=== PATIENT | male | born 1955 | race Caucasian/White ===

== ENCOUNTER 2020-08-20 09:00 | Outpatient (REF) | payer OTHER, SELFPAY ==
[2020-08-20 09:18] LABS: COVID-19 Test Negative (Negative)
== END 2020-08-20 09:01 | disposition home or self-care (01) ==
LOC: HO.EMPCOV 09:00
PROVIDERS: Visit Provider Internal Medicine
DX: Z20.822 Contact with and (suspected) exposure to COVID-19 (principal)
CPT/HCPCS: 36415; 87635; C9803

== ENCOUNTER 2020-08-20 09:32 | Emergency (ER) | payer OTHER, SELFPAY ==
[2020-08-20 09:37] VITALS: BP 109/71; PULSE 62; RESP 20; TEMP 36.4; O2SAT 98; BMI 25.0
--- NOTE | 2020-08-20 09:54 | ED.NAVMDI ---
HPI - Nausea/Vomiting/Diarrhea General Chief complaint: Nausea/Vomiting/Diarrhea Stated complaint: n/d/chills Time Seen by Provider: 08/20/20 09:42 Source: patient Mode of arrival: ambulatory Limitations: no limitations History of Present Illness HPI Narrative: 65 y/o male wtih no medical problems presenting to the ER with acute onset of chills, nausea and diarrhea x 1 that started this morning. Patient was in his usual state of health yesterday, climbed [place] without any difficulty. Last night he woke up at 1am with cold sweats and was unable to go back to sleep. At work this morning nausea and diarrhea began. He states stool was loose, brown, non-bloody. No vomiting or abdominal pain. No fevers, SOB, chest pain, muscle aches. MD elicited complaint: nausea and diarrhea Onset (ago): hour(s) (4) Description of diarrhea: semi-solid and loose Associated nausea: Yes Associated abdominal pain: No Location of pain: none Severity: moderate Exacerbating factors: none Context: other (works in ICU ) Associated symptoms: fever/chills, loss of appetite, malaise and nausea/vomiting Related Data Allergies Allergy/AdvReac Type Severity Reaction Status Date / Time prochlorperazine Allergy Unknown AKATHESIA Unverified 04/26/20 19:38 [From COMPAZINE] Review of Systems Review of Systems: Constitutional: No Fever, + Chills ENT/Mouth: No sore throat, No Rhinorrhea, No Swallowing Difficulty Cardiovascular: No Chest Pain, No SOB, No Orthopnea, No Edema Respiratory: No Cough, No Sputum, No Wheezing, No dyspnea Gastrointestinal: + Nausea, No Vomiting, + Diarrhea, No abdominal Pain, No Hematochezia, No Melena Genitourinary: No Dysuria, No Urinary Frequency, No Hematuria Musculoskeletal: No joint pain, No Myalgias Skin: No Skin Lesions, No rash Neuro: No Weakness, No Numbness, No Dizziness, + Headache Heme/Lymph: No Lymphadenopathy Endocrine: No Polyuria, No Polydipsia Gastrointestinal: Gastrointestinal: Reports nausea PMFSH Past Medical History Attestation statement: The following information was validated with the patient. Social History Social History Alcohol intake: never Smoking Status: Never smoker Use of substances other than those prescribed or required for medical reasons: No Advance Directives: No Advance Directives Information Provided: Yes Physical Exam Vital Signs: Vital Signs: Last Vital Signs Temp 98.1 F 08/20/20 10:58 Pulse 66 08/20/20 10:58 Resp 18 08/20/20 10:58 BP 117/76 08/20/20 10:58 Pulse Ox 95 08/20/20 10:58 Body Mass Index 25.0 Appearance: Alert. Oriented X3. No acute distress. Eyes: normal inspection ENT: Pharynx normal. Neck: Normal inspection. Neck supple. CVS: Normal heart rate and rhythm. Pulses normal. Respiratory: No respiratory distress. Breath sounds normal. Abdomen: Soft and nontender. +BS x4 Skin: Skin warm and dry. Normal skin color. Normal skin turgor. No rashes. Extremities: No lower extremity edema. Negative Sam's sign Neuro: Oriented X 3. No motor deficit. No sensory deficit. Course Course Course Narrative: 65 y/o healthy male presenting with chills, nausea and diarrhea. Concern for COVID-19 given line of work. Admits to decreased PO intake and not drinking enough water - will check basic labs, electrolytes, inflammatory markers, LFT's, etc. LR ordered. COVID rapid was negative, will also send PCR. Hemodynamically stable and appears well. Reevaluation(s) Reevaluation #1: Lab workup is unremarkable. COVID negative x2. s/p 2L IVF and feeling better. Stable for discharge. MDM - Nausea/Vomiting/Diarrhea Lab Data Result diagrams: 08/20/20 09:54 08/20/20 09:54 Labs: Lab Results 08/20/20 08/20/20 08/20/20 Range/Units 09:54 09:54 09:54 WBC 8.5 (4.8-10.8) X10*3/uL RBC 5.08 (4.60-5.80) X10*6/uL Hgb 14.7 (14.0-18.0) g/dl Hct 44.6 (42-52) % MCV 87.8 (80-98) fL MCH 28.9 (27.0-33.0) pg MCHC 33.0 (31.0-36.0) g/dl RDW 12.5 (11.0-16.0) % Plt Count 261 (160-400) X10*3/uL MPV 9.6 (9.4-12.4) fL Immature Gran % (Auto) 0.5 H (0.0-0.4) % Neut % (Auto) 80.3 H (45-73) % Lymph % (Auto) 12.1 L (20-40) % [place] % (Auto) 6.1 (2-11) % Eos % (Auto) 0.8 (0-4) % Baso % (Auto) 0.2 (0-2) % Lymph # (Auto) 1.0 L (1.2-4.9) X10*3/uL [place] # (Auto) 0.5 (0.1-1.2) X10*3/uL Eos # (Auto) 0.1 (0.0-0.4) X10*3/uL Baso # (Auto) 0.0 (0.0-0.2) X10*3/uL Abs Immat Gran (auto) 0.04 H (0.00-0.03) X10*3/uL Absolute Neuts (auto) 6.8 (2.0-8.3) X10*3/uL Absolute Nucleated RBC 0.000 (0.0-0.012) X10*3/uL Nucleated RBC % (auto) 0.0 (0.0-0.2) /100WBC Sodium 138 (135-145) mmol/L Potassium 4.8 (3.3-5.1) mmol/l Chloride 108 (96-108) mmol/L Carbon Dioxide 19 L (22-29) mmol/L Anion Gap 16 (12-20) BUN 21 H (9-16) mg/dL Creatinine 0.76 (0.5-1.4) mg/dL Estim Creat Clear Calc 112.4 Estimated GFR > 60 Random Glucose 87 (60-115) mg/dL Calcium 9.3 (8.4-10.2) mg/dL Magnesium 1.9 (1.6-2.6) mg/dL Ferritin 87 (20-250) ng/mL Total Bilirubin 0.8 (0.0-1.0) mg/dL Direct Bilirubin 0.2 (0.0-0.5) mg/dL AST 27 (5-37) U/L ALT 29 (0-40) U/L Alkaline Phosphatase 94 (39-117) U/L Lactate Dehydrogenase 262 (118-273) U/L C-Reactive Protein 0.07 (< or = 0.50) mg/dL Total Protein 7.5 (6.5-8.0) g/dL Albumin 4.5 (3.5-5.0) g/dL Coronavirus (PCR) (Negative) Influenza Type A (PCR) (Negative) Influenza Type B (PCR) (Negative) RSV RNA Qual (PCR) (Negative) 08/20/20 Range/Units 09:54 WBC (4.8-10.8) X10*3/uL RBC (4.60-5.80) X10*6/uL Hgb (14.0-18.0) g/dl Hct (42-52) % MCV (80-98) fL MCH (27.0-33.0) pg MCHC (31.0-36.0) g/dl RDW (11.0-16.0) % Plt Count (160-400) X10*3/uL MPV (9.4-12.4) fL Immature Gran % (Auto) (0.0-0.4) % Neut % (Auto) (45-73) % Lymph % (Auto) (20-40) % [place] % (Auto) (2-11) % Eos % (Auto) (0-4) % Baso % (Auto) (0-2) % Lymph # (Auto) (1.2-4.9) X10*3/uL [place] # (Auto) (0.1-1.2) X10*3/uL Eos # (Auto) (0.0-0.4) X10*3/uL Baso # (Auto) (0.0-0.2) X10*3/uL Abs Immat Gran (auto) (0.00-0.03) X10*3/uL Absolute Neuts (auto) (2.0-8.3) X10*3/uL Absolute Nucleated RBC (0.0-0.012) X10*3/uL Nucleated RBC % (auto) (0.0-0.2) /100WBC Sodium (135-145) mmol/L Potassium (3.3-5.1) mmol/l Chloride (96-108) mmol/L Carbon Dioxide (22-29) mmol/L Anion Gap (12-20) BUN (9-16) mg/dL Creatinine (0.5-1.4) mg/dL Estim Creat Clear Calc Estimated GFR Random Glucose (60-115) mg/dL Calcium (8.4-10.2) mg/dL Magnesium (1.6-2.6) mg/dL Ferritin (20-250) ng/mL Total Bilirubin (0.0-1.0) mg/dL Direct Bilirubin (0.0-0.5) mg/dL AST (5-37) U/L ALT (0-40) U/L Alkaline Phosphatase (39-117) U/L Lactate Dehydrogenase (118-273) U/L C-Reactive Protein (< or = 0.50) mg/dL Total Protein (6.5-8.0) g/dL Albumin (3.5-5.0) g/dL Coronavirus (PCR) NEGATIVE (Negative) Influenza Type A (PCR) NEGATIVE (Negative) Influenza Type B (PCR) NEGATIVE (Negative) RSV RNA Qual (PCR) NEGATIVE (Negative) Critical Care Time Critical Care Time Critical Care Time: No Discharge Plan Discharge Clinical Impression: Gastroenteritis Patient Disposition: Home, Self-Care Instructions: Dehydration (ED), Gastroenteritis (ED) Additional Instructions: Your lab workup today was unremarkable. You were tested for COVID-19 x2 - both results were negative. Rest and STAY HYDRATED. Drink plenty of water. Follow up with your doctor as needed.
[2020-08-20] MEDS: Lactated Ringers 1,000 ML 999 ML IVCONT ×2 (10:02→10:55)
[2020-08-20 10:03] LABS: MANUAL DIFF FLAG NO
[2020-08-20 10:14] LABS: Basophils Percent Auto 0.2 % (0-2); Eosinophils Absolute Auto 0.1 X10*3/uL (0.0-0.4); Eosinophils Percent Auto 0.8 % (0-4); Hematocrit 44.6 % (42-52); Hemoglobin 14.7 g/dl (14.0-18.0); Imm Gran Abs Auto 0.04 X10*3/uL (0.00-0.03); Imm Gran Pct Auto 0.5 % (0.0-0.4); Lymphocytes Percent Auto 12.1 % (20-40); Mean Corpuscular Hemoglobin 28.9 pg (27.0-33.0); Mean Corpuscular Volume 87.8 fL (80-98); Mean Platelet Volume 9.6 fL (9.4-12.4); Monocytes Absolute Auto 0.5 X10*3/uL (0.1-1.2); Monocytes Percent Auto 6.1 % (2-11); Neutrophils Absolute Auto 6.8 X10*3/uL (2.0-8.3); Neutrophils Percent Auto 80.3 % (45-73); Platelet Count 261 X10*3/uL (160-400); Red Blood Count 5.08 X10*6/uL (4.60-5.80); Red Cell Distribution Width 12.5 % (11.0-16.0); White Blood Count 8.5 X10*3/uL (4.8-10.8)
[2020-08-20 10:36] LABS: Alanine Aminotransferase 29 U/L (0-40); Albumin Level 4.5 g/dL (3.5-5.0); Alkaline Phosphatase 94 U/L (39-117); Anion Gap 16 (12-20); Aspartate Amino Transferase 27 U/L (5-37); Bilirubin Direct 0.2 mg/dL (0.0-0.5); Bilirubin Total 0.8 mg/dL (0.0-1.0); Blood Urea Nitrogen 21 mg/dL (9-16); C Reactive Protein 0.07 mg/dL (< or = 0.50); Calcium 9.3 mg/dL (8.4-10.2); Carbon Dioxide 19 mmol/L (22-29); Chloride 108 mmol/L (96-108); Creatinine Clr Calc Pharmacy 112.4; Estimated Glomerular Filt Rate > 60; Glucose Random 87 mg/dL (60-115); Lactate Dehydrogenase 262 U/L (118-273); Magnesium 1.9 mg/dL (1.6-2.6); Potassium 4.8 mmol/l (3.3-5.1); Sodium 138 mmol/L (135-145); Total Protein 7.5 g/dL (6.5-8.0)
[2020-08-20 10:46] LABS: Ferritin 87 ng/mL (20-250)
[2020-08-20 10:58] VITALS: BP 117/76; PULSE 66; RESP 18; TEMP 36.7; O2SAT 95
[2020-08-20 11:40] LABS: Influenza A PCR NEGATIVE (Negative); Influenza B PCR NEGATIVE (Negative); Resp Syncy Virus RNA Qual PCR NEGATIVE (Negative); SARS COV2 PCR INHOUSE NEGATIVE (Negative)
== END 2020-08-20 12:09 | disposition home or self-care (01) ==
PROVIDERS: Physician Assistant; Emergency Provider Emergency Medicine; PCP Internal Medicine
DX: K52.9 Noninfective gastroenteritis and colitis, unspecified (principal); E86.0 Dehydration; Z20.828 Contact with and (suspected) exposure to other viral communicable diseases
CPT/HCPCS: 0241U; 36415; 80048; 80076; 82728; 83615; 83735; 85025; 86140; 96360; 96361; 99284

== ENCOUNTER 2020-10-24 07:57 | Outpatient (REF) | payer OTHER, SELFPAY ==
[2020-10-24 08:13] LABS: COVID-19 Test Negative (Negative)
== END 2020-10-24 07:58 | disposition home or self-care (01) ==
LOC: HO.EMPCOV 07:57
PROVIDERS: Visit Provider Internal Medicine
DX: Z20.822 Contact with and (suspected) exposure to COVID-19 (principal)
CPT/HCPCS: 36415; 87635; C9803

== ENCOUNTER 2021-02-21 08:51 | Outpatient (REF) | payer OTHER, SELFPAY ==
--- NOTE | ~2021-02-21 | MR_ITS ---
EXAMINATION: MR KNEE WITHOUT CONTRAST, LEFT CLINICAL INFORMATION: Patient reports knee pain. COMPARISON: None TECHNIQUE: MRI of the knee without contrast was performed using routine sequences on a high-field scanner. FINDINGS: MENISCI: Medial Meniscus: There is a small focus of increased signal near the free edge at the junction of the body and posterior horn possibly extending to the tibial articular surface or free edge. Findings suspicious but not definitive for meniscal tear. Lateral Meniscus: Intact LIGAMENTS: Cruciate: Intact Collateral: Intact EXTENSOR MECHANISM: Intact ARTICULAR CARTILAGE/BONE: Patellofemoral Compartment: Small focal area of cartilage irregularity along the medial facet of the patella. Trochlear cartilage normal. Overall minimal patellofemoral arthrosis. Medial Compartment: There is subchondral bone marrow edema along the peripheral posterior medial aspect of the tibial plateau compatible with bone contusion. Lateral Compartment: Normal JOINT FLUID AND BURSAE: There is a mild joint effusion and synovitis. MR/MR knee LT wo con IMPRESSION: Possible tear of the medial meniscus. Bone contusion in the medial plateau, mild joint effusion and synovitis. Minimal patellofemoral arthrosis.
== END 2021-02-21 08:52 | disposition home or self-care (01) ==
LOC: HO.MRI 08:51
PROVIDERS: PCP Internal Medicine; Visit Provider Internal Medicine
DX: M25.562 Pain in left knee (principal)
CPT/HCPCS: 73721

== ENCOUNTER → 2021-03-22 10:20 | Outpatient (BNVA) | payer OTHER, SELFPAY | PROVIDERS: PCP Internal Medicine; Visit Provider Surgery ==

== ENCOUNTER 2021-04-15 11:12 | Outpatient (REF) | payer OTHER, SELFPAY ==
[2021-04-15 11:48] LABS: COVID-19 Test Negative (Negative)
== END 2021-04-15 11:13 | disposition home or self-care (01) ==
LOC: HO.LAB 11:12
PROVIDERS: PCP Internal Medicine; Visit Provider Internal Medicine Pulmonary Disease
DX: Z20.822 Contact with and (suspected) exposure to COVID-19 (principal)
CPT/HCPCS: 36415; 87635

== ENCOUNTER 2021-04-17 06:11 | Day surgery (SDC) | payer OTHER, SELFPAY ==
[2021-04-10 09:16] VITALS: BMI 25.0
[2021-04-12 17:50] LABS: MANUAL DIFF FLAG NO
[2021-04-12 17:58] LABS: Basophils Percent Auto 0.4 % (0-2); Eosinophils Absolute Auto 0.1 X10*3/uL (0.0-0.4); Eosinophils Percent Auto 1.5 % (0-4); Hematocrit 41.8 % (42-52); Hemoglobin 13.8 g/dl (14.0-18.0); Imm Gran Abs Auto 0.02 X10*3/uL (0.00-0.03); Imm Gran Pct Auto 0.3 % (0.0-0.4); Lymphocytes Absolute Auto 1.8 X10*3/uL (1.2-4.9); Lymphocytes Percent Auto 26.5 % (20-40); Mean Corpuscular Hemoglobin 29.1 pg (27.0-33.0); Mean Platelet Volume 10.3 fL (9.4-12.4); Monocytes Absolute Auto 0.5 X10*3/uL (0.1-1.2); Monocytes Percent Auto 7.4 % (2-11); Neutrophils Absolute Auto 4.4 X10*3/uL (2.0-8.3); Neutrophils Percent Auto 63.9 % (45-73); Platelet Count 280 X10*3/uL (160-400); Red Blood Count 4.75 X10*6/uL (4.60-5.80); Red Cell Distribution Width 12.8 % (11.0-16.0); White Blood Count 6.9 X10*3/uL (4.8-10.8)
[2021-04-12 18:03] LABS: INTERNATIONAL NORM RATIO 1.1 (0.9-1.1); Prothrombin Time 12.2 SEC (9.9-13.0)
[2021-04-12 18:06] LABS: Partial Thromboplastin Time 36.6 SEC (24.1-38.0)
[2021-04-12 18:13] LABS: Anion Gap 12 (12-20); Blood Urea Nitrogen 26 mg/dL (9-16); Calcium 9.5 mg/dL (8.4-10.2); Carbon Dioxide 23 mmol/L (22-29); Chloride 107 mmol/L (96-108); Creatinine Clr Calc Pharmacy 104.1; Estimated Glomerular Filt Rate > 60; Glucose Random 105 mg/dL (60-115); Potassium 4.5 mmol/L (3.3-5.1); Sodium 137 mmol/L (135-145)
[2021-04-12 18:28] LABS: Color Urine YELLOW; Glucose Urine UA NEG (NEG); Leukocyte Esterase Urine NEG (NEG); Nitrite Urine NEG (NEG); Specific Gravity - Urine >= 1.030 (1.005-1.025); Urine Blood NEG (NEG); Urine Ketones NEG (NEG); Urine Protein NEG (NEG-TRACE)
[2021-04-12 18:29] LABS: Appearance Urine CLEAR
[2021-04-12 18:35] LABS: Prostate Specific Antigen 0.32 ng/mL (<0.05-4.0)
--- NOTE | 2021-04-16 09:30 | P.CONAN_ITS ---
Documented by User: Graciela Casillas NP 04/16/21 09:31 HPI - Anesthesia Eval Consult details Narrative: 66yo M for Left Hernia Repair Inguinal Laparoscopic with Mesh, Hernia Repair Umbilical Laparoscopic,possible open,possible mesh PMFSH Active Problems Active Problems: All Active Problems (Updated 04/10/21 @ 10:41 by Michael Hancock MD) Encounter for preprocedure screening laboratory testing for COVID-19 (Acute) Preoperative examination (Acute) Left inguinal hernia (Acute) Umbilical hernia (Acute) Past Medical History Medical History (Updated 04/10/21 @ 10:41 by Michael Hancock MD) COVID-19 vaccine series completed Seasonal allergies Family History Family History Mother No problems noted. Father No problems noted. Brother No problems noted. Sister No problems noted. Sister No problems noted. Surgical History Surgical History (Updated 04/10/21 @ 09:21 by Mckenzie Gray RN) History of bilateral inguinal hernia repair Hx of knee surgery Hx of ligation of vein Hx of shoulder surgery Social History Social History Alcohol intake: never Patient Tobacco Use Status: Never used Tobacco Use of substances other than those prescribed or required for medical reasons: No Have you been hit, kicked, punched, or otherwise hurt by someone within the past year? If so, by whom?: No Are you DNR?: No Advance Directives Information Provided: Yes Advance Directives on File: No Recently lost weight without trying: No Eating poorly because of decreased appetite: No Nutrition Risks: No Nutritional Risk Poor oral hygiene: No Meds Allergies Allergy/AdvReac Type Severity Reaction Status Date / Time prochlorperazine Allergy Intermediate akathisia Verified 04/17/21 06:47 [From COMPAZINE] Home Medications Medication Instructions Recorded Confirmed Last Taken Type gabapentin 600 mg tablet 600 mg PO DAILY 04/17/21 04/17/21 04/17/21 History Exam Exam Date and Time: April 16, 202130 Height,Weight and Vital Signs: Height 6 ft 1 in Weight 86.183 kg Pertinent Lab Results Pertinent Lab Results: Laboratory Tests 04/12/21 04/12/21 04/12/21 00:00 16:50 16:50 WBC 6.9 RBC 4.75 Hgb 13.8 L Hct 41.8 L MCV 88.0 MCH 29.1 MCHC 33.0 RDW 12.8 Plt Count 280 MPV 10.3 Immature Gran % (Auto) 0.3 Neut % (Auto) 63.9 Lymph % (Auto) 26.5 [place] % (Auto) 7.4 Eos % (Auto) 1.5 Baso % (Auto) 0.4 Lymph # (Auto) 1.8 [place] # (Auto) 0.5 Eos # (Auto) 0.1 Baso # (Auto) 0.0 Abs Immat Gran (auto) 0.02 Absolute Neuts (auto) 4.4 Absolute Nucleated RBC 0.000 Nucleated RBC % (auto) 0.0 PT 12.2 INR 1.1 APTT 36.6 Sodium Potassium Chloride Carbon Dioxide Anion Gap BUN Creatinine Estim Creat Clear Calc Estimated GFR Random Glucose Calcium Prostate Specific Ag Urine Color YELLOW Urine Appearance CLEAR Urine pH 6.0 Ur Specific [place] >= 1.030 H Urine Protein NEG Urine Glucose (UA) NEG Urine Ketones NEG Urine Blood NEG Urine Nitrite NEG Ur Leukocyte Esterase NEG Blood Type Antibody Screen 04/12/21 04/12/21 04/12/21 16:50 16:50 16:50 WBC RBC Hgb Hct MCV MCH MCHC RDW Plt Count MPV Immature Gran % (Auto) Neut % (Auto) Lymph % (Auto) [place] % (Auto) Eos % (Auto) Baso % (Auto) Lymph # (Auto) [place] # (Auto) Eos # (Auto) Baso # (Auto) Abs Immat Gran (auto) Absolute Neuts (auto) Absolute Nucleated RBC Nucleated RBC % (auto) PT INR APTT Sodium 137 Potassium 4.5 Chloride 107 Carbon Dioxide 23 Anion Gap 12 BUN 26 H Creatinine 0.81 Estim Creat Clear Calc 104.1 Estimated GFR > 60 Random Glucose 105 Calcium 9.5 Prostate Specific Ag 0.32 Urine Color Urine Appearance Urine pH Ur Specific [place] Urine Protein Urine Glucose (UA) Urine Ketones Urine Blood Urine Nitrite Ur Leukocyte Esterase Blood Type O Positive Antibody Screen NEGATIVE Assessment and Plan Assessment Anesthesia Assessment: Chart Reviewed Documented by User: Lul Graham MD 04/17/21 06:55 [facility] Past Medical History Medical History (Updated 04/10/21 @ 10:41 by Michael Hancock MD) COVID-19 vaccine series completed Seasonal allergies Family History Family History Mother No problems noted. Father No problems noted. Brother No problems noted. Sister No problems noted. Sister No problems noted. Family history of problems with anesthesia: No Surgical History Surgical History (Updated 04/10/21 @ 09:21 by Mckenzie Gray RN) History of bilateral inguinal hernia repair Hx of knee surgery Hx of ligation of vein Hx of shoulder surgery History of Problems with Anesthesia: No Social History Social History Alcohol intake: never Patient Tobacco Use Status: Never used Tobacco Use of substances other than those prescribed or required for medical reasons: No Have you been hit, kicked, punched, or otherwise hurt by someone within the past year? If so, by whom?: No Are you DNR?: No Advance Directives Information Provided: Yes Advance Directives on File: No Recently lost weight without trying: No Eating poorly because of decreased appetite: No Nutrition Risks: No Nutritional Risk Poor oral hygiene: No Meds Allergies Allergy/AdvReac Type Severity Reaction Status Date / Time prochlorperazine Allergy Intermediate akathisia Verified 04/17/21 06:47 [From COMPAZINE] Home Medications Medication Instructions Recorded Confirmed Last Taken Type gabapentin 600 mg tablet 600 mg PO DAILY 04/17/21 04/17/21 04/17/21 History Exam Airway Mallampati Class: II TM Dist: >3cm Neck ROM: Full Loose/Missing/Broken Teeth: No (many caps and implants diffuse but none loose) Heart: [id number] Lungs: CTA b/l Assessment and Plan Assessment Anesthesia Assessment: Anesthesia Plan Discussed and PAT Visit Final Anesthetic Review Family History of Problems with Anesthesia: No History of Problems with Anesthesia: No NPO: Yes ASA Class: II Final Preanesthetic Review: No Changes in Pt Med Stat, Meds/Allgs Chart Reviewed, Consent Obtained/Reviewed and Anes Risks/Benef Reviewed Patient Risk: Intermediate Procedure Risk: Intermediate Assessment/Block/Sedation in SS: Assess/Block/Sedation-SS Anesthetic Plan Anesthetic Plan: GA and Agree w/ Assess. and Plan Disposition: Standard PACU
--- NOTE | 2021-04-16 15:30 | MHC.SHP ---
Pre-Procedural Eval Section A Date of Service: 04/16/21 Section B Chief Complaint: Inguinal and Umbilical Hernia w/o Gangrene Allergies: Allergies Allergy/AdvReac Type Severity Reaction Status Date / Time prochlorperazine Allergy Intermediate akathisia Unverified 04/10/21 09:23 [From COMPAZINE] Plan I have reviewed the history and physical and performed a pertinent physical examination on my patient. No changes have occurred unless specified.
[2021-04-17] VITALS (18 sets, daily range): BP systolic 99–140; BP diastolic 57–74; PULSE 57–74; RESP 12–19; TEMP 36.3–36.9; O2SAT 90–97
[2021-04-17] MEDS: Lactated Ringers 1,000 ML 100 ML IVCONT (06:48)
--- NOTE | 2021-04-17 07:03 | PC.NURSE ---
PATIENT HAD A COVID SWAB ON THURSDAY FROM A PREVIOUS SURGERY IT WAS NEGATIVE. OK NOT TO SWAB TODAY. MD CRAWFORD AWARE.
--- NOTE | 2021-04-17 09:31 | P.BOP_ITS ---
Brief Operative Note Date of Service: 04/17/21 Pre-op diagnosis: Left inguinal hernia and umbilical hernia Post-op diagnosis: same Procedure: Laparoscopic total extraperitoneal repair of left inguinal hernia with mesh and primary suture repair of umbilical hernia Implants: 3D max Bard Light extra-large left sided mesh Surgeon: Georgina Mohr MD Anesthesia: GETA Was an Uphol[employer]s [employer] used for this Procedure?: No Estimated blood loss (mL): 2 Pathology: other (Umbilical hernia sac) Condition: stable Disposition: PACU
--- NOTE | 2021-04-17 09:32 | W.PM.OPN ---
Operative Note Operative Note Date of Service: 04/17/21 Narrative: Patient was brought into the operating room placed on operating room table in supine position. General anesthesia was induced. The patient received 2 g of IV Kefzol preoperatively and normal DVT prophylaxis was instituted. The abdomen and left groin were shaved with electric clippers and then prepped and draped in normal sterile fashion. The right arm had been tucked next to the patient on the bed. A safety time-out was performed. Next a mixture of local which was 1% lidocaine with epinephrine and 0.25% Marcaine plain was used to anesthetize the infraumbilical skin and subcutaneous tissues. A 2 cm infraumbilical transverse surgical incision was made through which the subcutaneous tissues were dissected down to the level of the fascia. The fascia was opened longitudinally to the left of midline after being anesthetized using the same local medication. The left rectus muscle was elevated and the preperitoneal space was accessed using a finger and bluntly dissected. The laparoscopic dissecting balloon was placed into the preperitoneal space and used to dissect the space under direct vision using a 10 mm 30 degree laparoscoped. Next the laparoscopic preperitoneal balloon was placed into the preperitoneal space posterior to the left rectus muscle. The balloon was insufflated on the 12 mm port and the preperitoneal space was insufflated to 15 mm of mercury. Next we placed the 10 mm 30 degree laparoscoped into the preperitoneal space and visualized the preperitoneal space which was dissected nicely. We then placed 2 additional 5 mm ports in the midline 1 in the suprapubic region and 1 just inferior to the placement of the 12 mm port. We then used to dissect there was to dissect the peritoneum down away from the abdominal wall laterally and away from the spermatic cord and cord structures. We also cleared the Reynold's ligament medially. We visualized the peritoneum riding up on to the spermatic cord and cord structures and reduced the cord and cord structures and a lipoma of the cord so that the hernia was completely reduced. We then shows a extra large Bard Light mesh and rolled up onto a grasper and placed into the 12 mm port into the preperitoneal space. We positioned the mesh so that the medial portion was lying over the midline and over Reynold's ligament and the lateral edge was tucked anterior to the reduced peritoneum. We then held back the peritoneum and completely straighteed out the mesh so that it was lying flat against the abdominal wall and the spermatic cord and cord structures. We then placed a total of 4 tacks using the Capsure Bard Tacker. These tacks were placed 2 at Reynold's ligament and 2 out laterally and superiorly on the abdominal wall. The mesh was in good position and then we desufflated the preperitoneal space watching the peritoneum rise anterior to the newly placed mesh. We then removed the 5 mm ports under direct vision. We desufflated the balloon on the 12 mm port and removed the balloon from the preperitoneal space. We then used more local anesthetic around the umbilicus and turned our attention to repairing the umbilical hernia. We dissected the umbilical skin off for the underlying umbilical hernia sac. We cleared the fascia circumferentially around the hernia sac for at least 2-3 cm. We then amputated the hernia sac which was filled with preperitoneal fat. We passed this off the field for pathology. The umbilical opening was only about 5 mm in size and was too small for placement of a mesh. We then closed the umbilical defect using a [id number] 1. Prolene suture. We reapproximated the fascia at the 12 mm port site using a [id number] 1. Prolene suture. We instilled a significant amount of local anesthetic into the fascia and subcutaneous tissues. We then tacked down the umbilical skin to the fascia using a total of 2 2 0 Vicryl sutures. We reapproximated deep dermal tissues were using several interrupted 2 0 Vicryl sutures. We closed all skin incisions with a 4-0 Monocryl subcuticular stitch. We cleaned and dried the skin. We applied skin glue to all skin incisions. We applied a 2 x 2 dressing into the umbilicus and cover that with a 2 x 2 dressing and Tegaderm. All counts were correct at the end of the case there were no complications. The patient was awake and in stable condition prior to extubation and then he was transferred to the recovery room.
[2021-04-17] MEDS: fentaNYL citrate/PF 100 MCG/2 ML VIAL 50 MCG IVPUSH ×2 (10:23→10:42)
[2021-04-17] MEDS: oxyCODONE HCl Immed Release 5 MG TABLET 10 MG PO (11:16)
== END 2021-04-17 16:06 | disposition home or self-care (01) ==
PROVIDERS: Internal Medicine Pulmonary Disease; PCP Internal Medicine; Visit Provider Surgery
PROC: (CPT 49650; principal; 2021-04-17 07:30)
PROC: 0WQF4ZZ Repair Abdominal Wall, Percutaneous Endoscopic Approach (ICD-10-PCS; CPT 49585; 2021-04-17 07:30)
DX: K40.90 Unilateral inguinal hernia, without obstruction or gangrene, not specified as recurrent (principal); K42.9 Umbilical hernia without obstruction or gangrene; R06.02 Shortness of breath
CPT/HCPCS: 49585; 49650; 36415; 80048; 81003; 84153; 85025; 85610; 85730; 86850; 86900; 86901; 88302; C1727; J0131; J0690; J1100; J2250; J2370; J2405; J3010

== ENCOUNTER → 2021-04-25 12:57 | Outpatient (BNVA) | payer OTHER, SELFPAY | PROVIDERS: PCP Internal Medicine; Referring Provider Internal Medicine; Visit Provider Surgery ==

== ENCOUNTER 2021-04-26 09:39 | Outpatient (REF) | payer OTHER, SELFPAY ==
--- NOTE | ~2021-04-26 | CT_ITS ---
EXAMINATION: CT ABDOMEN AND PELVIS WITHOUT CONTRAST CLINICAL INFORMATION: Post procedure state COMPARISON: None TECHNIQUE: Multidetector volumetric imaging was performed from the superior aspect of the liver through the pubic symphysis. Sagittal and coronal reformatted images were obtained on the technologist's workstation. This CT examination was performed using dose optimization techniques as appropriate, variously including the following: *Automated exposure control *Adjustment of mA and/or kV according to patient size (this includes techniques or standardized protocols for targeted exams where dose is matched to indication/reason for exam; i.e. extremities or head) *Use of iterative reconstruction technique DLP: 576.9 mGy-cm FINDINGS: LUNG BASES: Bibasilar atelectasis. The heart is moderately enlarged. No pericardial effusion. LIVER, GALLBLADDER, AND BILIARY TREE: The liver is normal in size, shape, and attenuation. No focal hepatic lesion or biliary ductal dilatation is present. The gallbladder is nondistended. There is with no evidence of radiopaque gallstones, gallbladder wall thickening, or obvious pericholecystic inflammatory changes. PANCREAS: Unremarkable. SPLEEN: Unremarkable. ADRENAL GLANDS: Unremarkable. KIDNEYS AND URETERS: The kidneys are normal in size, shape, and attenuation. No hydronephrosis, hydroureter, or calculi seen. No perinephric stranding. BLADDER: Unremarkable. GASTROINTESTINAL TRACT: The small and large bowel are unremarkable. The appendix is unremarkable. ABDOMINAL WALL: Midline surgical scar, chronicity indeterminate. Surgical material along the left lower abdominal wall. Partially fat filled left inguinal hernia with a small amount of stranding noted in this region. Correlation with recent surgical history. LYMPH NODES: No enlarged lymph nodes per size criteria. Scattered subcentimeter bilateral inguinal and mesenteric lymph nodes. VASCULAR: Abdominal aorta is nonaneurysmal. Atherosclerotic calcifications of the abdominal aorta and its branches. Pelvic phleboliths are noted. PELVIC VISCERA: Unremarkable. OSSEOUS STRUCTURES: Multilevel degenerative changes of the thoracolumbar spine greatest at L5-S1. No large lytic or blastic lesions are noted. Multiple sclerotic foci are noted in the right femoral head likely representing islands. Degenerative changes of the bilateral femoral acetabular joints. CT/CT abdomen pelvis wo con IMPRESSION: 1. No acute process of the abdomen or pelvis identified. 2. Surgical material along the left lower abdominal wall. 3. Partially fat filled left inguinal hernia with a small amount of stranding noted in this region. Correlation with recent surgical history.
== END 2021-04-26 09:40 | disposition home or self-care (01) ==
LOC: HO.CT 09:39
PROVIDERS: PCP Internal Medicine; Visit Provider Surgery
DX: Z87.19 Personal history of other diseases of the digestive system (principal); Z98.890 Other specified postprocedural states
CPT/HCPCS: 74176

== ENCOUNTER → 2021-05-03 12:41 | Outpatient (BNVA) | payer OTHER, SELFPAY | PROVIDERS: PCP Internal Medicine; Visit Provider Surgery ==

== ENCOUNTER 2021-06-04 15:42 | Outpatient (REF) | payer OTHER, SELFPAY ==
[2021-06-05 11:37] LABS: SARS-COV-2 IgG Spike, Semi-Qnt 1.43 index (<1.00)
== END 2021-06-04 15:43 | disposition home or self-care (01) ==
LOC: HO.LAB 15:42
PROVIDERS: Visit Provider Allergy & Immunology
DX: Z20.822 Contact with and (suspected) exposure to COVID-19 (principal); L50.1 Idiopathic urticaria; L50.3 Dermatographic urticaria
CPT/HCPCS: 36415; 86769

== ENCOUNTER 2021-07-10 07:22 | Outpatient (REF) | payer OTHER, SELFPAY ==
--- NOTE | ~2021-07-10 | MR_ITS ---
EXAMINATION: MR KNEE WITHOUT CONTRAST, LEFT CLINICAL INFORMATION: Partial meniscal repair April 2021. Pain, evaluate for tibial stress fracture. COMPARISON: MRI of the left knee February 2021 TECHNIQUE: MRI of the knee without contrast was performed using routine sequences on a high-field scanner. FINDINGS: MENISCI: Medial Meniscus: There is mild blunting of the free edge of the body and posterior horn of the meniscus. There is some heterogeneous increased signal in the posterior horn near the free edge at the junction of the posterior horn and body extending from the femoral to the tibial articular surface. This could reflect postsurgical result but cannot exclude recurrent or new meniscal tear. See sagittal image 23 series 4. Lateral Meniscus: There is a subtle focus of intermediate increased signal at the free edge of the body of the meniscus on a single coronal image 18 series 5. This is not seen previously. This could reflect volume average artifact or a small tear. LIGAMENTS: Cruciate: Intact. Collateral: Intact. EXTENSOR MECHANISM: Intact. ARTICULAR CARTILAGE/BONE: Patellofemoral Compartment: Normal. Medial Compartment: Normal. Lateral Compartment: Normal. JOINT FLUID AND BURSAE: Normal. MR/MR knee LT wo con IMPRESSION: Postsurgical changes in the medial meniscus. Additional signal abnormality is noted. This is indeterminate. This could simply reflect postsurgical result but cannot exclude recurrent or new tear. Subtle finding along the free edge of the body of the lateral meniscus seen on a single coronal image. This could reflect volume average artifact or a small tear. I do not see evidence for a stress reaction or bone contusion. The previously noted marrow edema in the medial plateau has cleared.
== END 2021-07-10 07:23 | disposition home or self-care (01) ==
LOC: HO.MRI 07:22
PROVIDERS: PCP Internal Medicine; Visit Provider Orthopaedic Surgery
DX: S83.207D Unspecified tear of unspecified meniscus, current injury, left knee, subsequent encounter (principal); Z98.890 Other specified postprocedural states
CPT/HCPCS: 73721

== ENCOUNTER 2021-08-01 05:52 | Outpatient (REF) | payer OTHER, SELFPAY ==
--- NOTE | ~2021-08-01 | XR_ITS ---
EXAMINATION: XR CHEST CLINICAL INFORMATION: Congestion/URI. COMPARISON: None TECHNIQUE: 2 views of the chest were obtained. XR/XR chest 2V FINDINGS/IMPRESSION: There is a suggestion of a small, subtle, asymmetric hazy density projecting over the right apex on frontal view, not well appreciated on lateral view. Differential diagnosis includes, but is not limited to, atelectasis, overlapping normal bony and vascular structures, and focal infiltrate. Linear density projecting over the left base probably represents atelectasis and/or fibrotic change. No effusion or pneumothorax is seen. The heart appears normal in size. Mediastinum, diaphragm and soft tissues appear unremarkable. An orthopedic metallic screw projects over the right shoulder. There is a suggestion of a small metallic foreign body projecting over the left scapula.
[2021-08-01 07:29] LABS: COVID-19 Test Negative (Negative)
== END 2021-08-01 05:53 | disposition home or self-care (01) ==
LOC: HO.LAB 05:52
PROVIDERS: Visit Provider Internal Medicine
DX: Z20.822 Contact with and (suspected) exposure to COVID-19 (principal); J02.9 Acute pharyngitis, unspecified
CPT/HCPCS: 36415; 87635

== ENCOUNTER → 2021-09-09 11:00 | Outpatient (BNVA) | payer OTHER, SELFPAY | PROVIDERS: PCP Internal Medicine; Visit Provider Internal Medicine ==

== ENCOUNTER 2021-11-08 09:54 | Outpatient (REF) | payer OTHER, SELFPAY ==
--- NOTE | ~2021-11-08 | MR_ITS ---
EXAMINATION: MR KNEE WITHOUT CONTRAST, LEFT CLINICAL INFORMATION: Medial left knee pain. COMPARISON: Most recent left knee MRI dated 07/10/2021. TECHNIQUE: MRI of the knee without contrast was performed using routine sequences on a high-field scanner. FINDINGS: MENISCI: Medial Meniscus: Redemonstration of meniscal body attenuation with extension to the medial aspect of the posterior horn. Again noted is oblique inner margin radial fluid signal at the junction of the posterior body and posterior horn. Findings are unchanged when compared to the prior examination and may represent sequela of prior meniscectomy versus an unchanged tear. Correlation with surgical history is recommended. No new medial meniscal tear. Lateral Meniscus: Focal abnormal signal redemonstrated along the inner margin of the meniscal body, unchanged. No new lateral meniscal tear. LIGAMENTS: Cruciate: Intact Collateral: Edema adjacent to the medial collateral ligament consistent with a grade 1 sprain. Intact fibular collateral ligament. EXTENSOR MECHANISM: Intact ARTICULAR CARTILAGE/BONE: Patellofemoral Compartment: Medial and lateral patellar facet articular cartilage fissuring, new when compared to the prior examination. Tiny marginal osteophytes. Medial Compartment: Weightbearing medial femoral condyle partial-thickness articular cartilage loss measuring 0.6 cm in ML dimension, new when compared to the prior examination. Posterior non-weightbearing medial femoral condyle articular cartilage loss measuring 0.4 cm, new when compared to the prior examination. Lateral Compartment: Intact articular cartilage. JOINT FLUID AND BURSAE: Small joint effusion. MUSCLES/TENDONS: Edema associated with the semimembranosus tendon consistent with mild tendinosis. MR/MR knee LT wo con IMPRESSION: 1. Medial meniscal body attenuation extending into the medial aspect of the posterior horn with oblique inner margin radial fluid signal, unchanged when compared to the prior examination. Findings may represent sequela of prior meniscectomy versus an unchanged tear. Correlation with surgical history is recommended. 2. Stable inner margin abnormal signal of the lateral meniscal body, unchanged. No new lateral meniscal tear. 3. Acute grade 1 sprain of the medial collateral ligament. 4. 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 Small joint effusion. 5. Semimembranosus tendinosis, new when compared to the prior examination.
== END 2021-11-08 09:55 | disposition home or self-care (01) ==
LOC: HO.MRI 09:54
PROVIDERS: Visit Provider Internal Medicine
DX: M25.562 Pain in left knee (principal); M23.204 Derangement of unspecified medial meniscus due to old tear or injury, left knee
CPT/HCPCS: 73721

== ENCOUNTER 2022-01-16 16:00 | Outpatient (RCR) | payer OTHER, SELFPAY ==
--- NOTE | 2021-12-06 13:48 | MHC.PT.EP ---
[facility] [place] [facility] [place] [facility] [place] [facility] [address] Scot Bang [address] [phone] F: [phone] F: [phone] F: [phone] F: [phone] Physical Therapy Plan of Care Date of Evaluation: Date of Surgery: April Diagnosis: Pain in left knee Assessment: Pt is a pleasant and motivated 66yo M who presents to PT with L knee pain. He is s/p L knee menisectomy in April. Pt presents to PT with current impairments in pain, decreased quad eccentric strength, decreased hip/glute strength, decreased muscle length, soft tissue restrictions and impaired body mechanics. He is limited functionally by prolonged sitting, hiking downhill, and sleeping. Pt is an excellent candidate for skilled PT in order to address current impairments to facilitate return to PLOF. He will be seen 2x/week for 4 weeks and and will be reassessed at that time. Frequency and Duration: The patient will be seen 2x/week for 4 weeks Short Term Goals: Pt will be I with HEP in order to promote self management of symptoms Pt will improve L hamstring length to WFL Quality Assurance Manager Goals: Pt will hike on even and uneven surfaces > 1 hour with minimal to no pain in L knee Pt will sleep throughout the night 5x/week with minimal to no pain in L knee Pt will demonstrate improvements in functional mobility as evidenced by statistically significant improvement in LEFI outcome measure Treatment Plan: Modalities to reduce pain, spasms and effusion. Manual therapy to restore motion and function. Therapeutic exercise to improve strength and flexibility. Neuromuscular re-education for posture and balance. Therapeutic activities to return to functional activities of daily living. Electronically signed by: Nirmala Smith, PT, DPT Please sign and return to therapist. Thank you for your referral.
--- NOTE | 2022-01-21 17:48 | MHC.PT.DC ---
[facility] [place] [facility] [place] [facility] [place] [facility] [address] Scot Bang [address] [phone] F: [phone] F: [phone] F: [phone] F: [phone] Physical Therapy Discharge Report Diagnosis: Pain in left knee Date of Surgery: April Date of Evaluation: 12/05/21 Date of Discharge: 01/21/22 Treatments to Date: 10 Cancellations to Date: No Shows to Date: Discharge Status: Achieved Goals Improved Function Independent with HEP Discharge Summary: Pt was seen for PT from 12/05/21-01/14/22. His last scheduled and attended appointment was 01/14/22. He has made good progress toward his STGs and LTGs since SOC. His L knee ROM is WFL. He demonstrated improvements in quad and hip strength throughout sessions. He is able to bike > 20 miles and is able to hike on uneven surfaces with minimal to no pain. Pt is I with HEP. Pt is being D/C from skilled PT at this time. Electronically signed by: Nirmala Smith, PT, DPT Please sign and return to therapist. Thank you for your referral.
== END 2022-01-21 17:49 | disposition home or self-care (01) ==
LOC: HO.PT 16:00
PROVIDERS: Visit Provider Internal Medicine
DX: M25.562 Pain in left knee (principal)
CPT/HCPCS: 97035; 97110; 97112; 97161; 97530

== ENCOUNTER 2022-06-26 | Outpatient (REF) | payer OTHER, SELFPAY | END 2022-06-26 00:01 | disposition home or self-care (01) | LOC: HO.XRAY | PROVIDERS: Visit Provider Registered Nurse Community Health | DX: R09.81 Nasal congestion (principal); J06.9 Acute upper respiratory infection, unspecified | CPT/HCPCS: 71046 ==

== ENCOUNTER 2022-11-27 14:37 | Outpatient (REF) | payer OTHER, SELFPAY ==
--- NOTE | ~2022-11-27 | XR_ITS ---
EXAMINATION: XR RIBS, RIGHT CLINICAL INFORMATION: Fracture right ribs. COMPARISON: None available. TECHNIQUE: Frontal view of chest 3 views of the right ribs were obtained. BPD placed ovarian clinical concern. This is at the lower margin of the right ribs FINDINGS: Lungs are clear. No consolidation, pneumothorax, or pleural effusion. The cardiomediastinal silhouette and pulmonary vasculature are normal. Orthopedic screw in the right glenoid. There is no displaced right rib fracture. Anterior margin of the 11th rib is somewhat irregular but there is no cortical destruction.. XR/XR ribs RT min 3V w CXR1V IMPRESSION: 1. No acute abnormality of chest. 2. No displaced right rib fracture. 3. Anterior margin of the 11th rib is somewhat irregular but there is no cortical destruction.
== END 2022-11-27 14:38 | disposition home or self-care (01) ==
LOC: HO.XRAY 14:37
PROVIDERS: PCP Internal Medicine; Visit Provider Anesthesiology
DX: S22.31XA Fracture of one rib, right side, initial encounter for closed fracture (principal)
CPT/HCPCS: 71101

== ENCOUNTER 2023-10-02 10:40 | Outpatient (REF) | payer OTHER, SELFPAY ==
[2023-10-02 10:51] LABS: MANUAL DIFF FLAG NO
[2023-10-02 11:09] LABS: Basophils Percent Auto 0.5 % (0-2); Eosinophils Absolute Auto 0.1 X10*3/uL (0.0-0.4); Eosinophils Percent Auto 1.7 % (0-4); Hematocrit 38.9 % (42.0-52.0); Hemoglobin 13.1 g/dl (14.0-18.0); Imm Gran Abs Auto 0.02 X10*3/uL (0.00-0.03); Imm Gran Pct Auto 0.3 % (0.0-0.4); Lymphocytes Absolute Auto 1.6 X10*3/uL (1.2-4.9); Lymphocytes Percent Auto 25.6 % (20-40); Mean Corpuscular HGB Conc 33.7 g/dl (31.0-36.0); Mean Corpuscular Volume 86.1 fL (80.0-98.0); Mean Platelet Volume 9.3 fL (9.4-12.4); Monocytes Absolute Auto 0.6 X10*3/uL (0.1-1.2); Monocytes Percent Auto 10.2 % (2-11); Neutrophils Absolute Auto 3.9 x10*3/uL (2.0-8.3); Neutrophils Percent Auto 61.7 % (45-73); Platelet Count 261 X10*3/uL (160-400); Red Blood Count 4.52 X10*6/uL (4.60-5.80); Red Cell Distribution Width 13.3 % (11.0-16.0); White Blood Count 6.3 X10*3/uL (4.8-10.8)
[2023-10-02 11:33] LABS: Alanine Aminotransferase 27 U/L (0-40); Albumin Level 4.1 g/dL (3.5-5.0); Alkaline Phosphatase 116 U/L (39-117); Anion Gap 12 (12-20); Aspartate Amino Transferase 24 U/L (5-37); Bilirubin Total 0.3 mg/dL (0.0-1.0); Blood Urea Nitrogen 30 mg/dL (9-16); Calcium 9.4 mg/dL (8.4-10.2); Carbon Dioxide 23 mmol/L (22-29); Chloride 109 mmol/L (96-108); Estimated Glomerular Filt Rate > 60; Glucose Random 88 mg/dL (60-115); Potassium 4.4 mmol/L (3.3-5.1); Sodium 140 mmol/L (135-145); Total Protein 7.3 g/dL (6.5-8.0)
== END 2023-10-02 10:41 | disposition home or self-care (01) ==
LOC: HO.LAB 10:40
PROVIDERS: PCP Internal Medicine; Visit Provider Allergy & Immunology
DX: L50.1 Idiopathic urticaria (principal); L50.3 Dermatographic urticaria
CPT/HCPCS: 36415; 80053; 83520; 85025

== ENCOUNTER 2023-10-29 06:35 | Day surgery (SDC) | payer OTHER, SELFPAY ==
--- NOTE | 2023-10-28 08:59 | P.CONAN_ITS ---
Documented by User: Graciela Casillas NP 10/28/23 09:00 HPI - Anesthesia Eval Consult details Narrative: 68yo M for Upper Endoscopy and Colonoscopy [facility] Active Problems Active Problems: All Active Problems (Updated 11/27/22 @ 14:33 by Clive Hewitt MD) Right rib fracture (Acute) Left medial knee pain (Acute) Degenerative tear of left medial meniscus (Acute) Left knee pain (Acute) S/P left inguinal hernia repair (Acute) History of umbilical hernia repair (Acute) Encounter for preprocedure screening laboratory testing for COVID-19 (Acute) Preoperative examination (Acute) Left inguinal hernia (Acute) Umbilical hernia (Acute) Past Medical History Medical History Left knee pain Degenerative tear of left medial meniscus COVID-19 vaccine series completed Seasonal allergies Family History Family History Mother No problems noted. Father No problems noted. Brother No problems noted. Sister No problems noted. Sister No problems noted. Family history of problems with anesthesia: No Surgical History Surgical History History of esophagogastroduodenoscopy (EGD) H/O colonoscopy S/P left inguinal hernia repair History of umbilical hernia repair Hx of ligation of vein History of bilateral inguinal hernia repair Hx of shoulder surgery Hx of knee surgery History of Problems with Anesthesia: No Social History Social History Alcohol intake: never Patient Tobacco Use Status: Never used Tobacco Use of substances other than those prescribed or required for medical reasons: No Are you DNR?: No Advance Directives: No Advance Directives Information Provided: Yes Meds Allergies Allergy/AdvReac Type Severity Reaction Status Date / Time prochlorperazine Allergy Intermediate akathisia Verified 10/29/23 06:41 [From COMPAZINE] Home Medications Medication Instructions Recorded Confirmed Last Taken Type gabapentin 600 mg tablet 600 mg PO DAILY PRN Pain 09/09/21 10/29/23 Unknown History Exam Pertinent Lab Results Pertinent Lab Results: Laboratory Tests 04/12/21 10/02/23 16:50 10:48 WBC 6.9 6.3 Hgb 13.8 L 13.1 L Hct 41.8 L 38.9 L Plt Count 280 261 Sodium 137 140 Potassium 4.5 4.4 Chloride 107 109 H Carbon Dioxide 23 23 BUN 26 H 30 H Creatinine 0.81 0.77 Assessment and Plan Assessment Anesthesia Assessment: Chart Reviewed Final Anesthetic Review Family History of Problems with Anesthesia: No History of Problems with Anesthesia: No Documented by User: Margret Mejias MD 10/29/23 08:22 [facility] Active Problems Active Problems: All Active Problems (Updated 10/29/23 @ 07:13 by Margret Mejias MD) Right rib fracture (Acute) Left medial knee pain (Acute) Degenerative tear of left medial meniscus (Acute) Left knee pain (Acute) S/P left inguinal hernia repair (Acute) History of umbilical hernia repair (Acute) Encounter for preprocedure screening laboratory testing for COVID-19 (Acute) Preoperative examination (Acute) Past Medical History Medical History Left knee pain Degenerative tear of left medial meniscus COVID-19 vaccine series completed Seasonal allergies Family History Family History Mother No problems noted. Father No problems noted. Brother No problems noted. Sister No problems noted. Sister No problems noted. Family history of problems with anesthesia: No Surgical History Surgical History History of esophagogastroduodenoscopy (EGD) H/O colonoscopy S/P left inguinal hernia repair History of umbilical hernia repair Hx of ligation of vein History of bilateral inguinal hernia repair Hx of shoulder surgery Hx of knee surgery History of Problems with Anesthesia: No Social History Social History Alcohol intake: never Patient Tobacco Use Status: Never used Tobacco Use of substances other than those prescribed or required for medical reasons: No Are you DNR?: No Advance Directives: No Advance Directives Information Provided: Yes Meds Allergies Allergy/AdvReac Type Severity Reaction Status Date / Time prochlorperazine Allergy Intermediate akathisia Verified 10/29/23 06:41 [From COMPAZINE] Home Medications Medication Instructions Recorded Confirmed Last Taken Type gabapentin 600 mg tablet 600 mg PO DAILY PRN Pain 09/09/21 10/29/23 Unknown History Exam Height,Weight and Vital Signs: Height 6 ft 1 in Weight 87.634 kg Vital Signs Temp Pulse Resp BP Pulse Ox O2 Del Method 10/29/23 07:05 97.6 F 74 15 116/73 96 Room Air Airway Mallampati Class: II TM Dist: >3cm Neck ROM: Full Loose/Missing/Broken Teeth: No (Several caps intact. No broken or loose teeth) Heart: RRR Lungs: CTAB Assessment and Plan Assessment Anesthesia Assessment: Anesthesia Plan Discussed and Chart Reviewed Final Anesthetic Review Family History of Problems with Anesthesia: No History of Problems with Anesthesia: No NPO: Yes ASA Class: II Final Preanesthetic Review: No Changes in Pt Med Stat, Meds/Allgs Chart Reviewed, Consent Obtained/Reviewed and Anes Risks/Benef Reviewed Patient Risk: Low Procedure Risk: Low Assessment/Block/Sedation in SS: Assess/Block/Sedation-SS Anesthetic Plan Anesthetic Plan: TIVA Disposition: Standard PACU
--- NOTE | 2023-10-29 06:22 | P.HPSUR_ITS ---
Pre-Procedural Eval Section A - 24 Hr Update-Section A only Date of Service: 10/29/23 Section B - Complete if H&P > 30 days Chief Complaint: Encounter for screening for malignant neoplasm of Details of Present Illness: gerd Relevant Family History (Specify if Yes): No Relevant Social History: None Present Medications: see Short Stay Collaborative assessment Medical History: Significant History (Left knee pain Degenerative tear of left medial meniscus COVID-19 vaccine series completed Seasonal allergies) History of Previous Operations: Relevant previous surgery/procedure and date(s) ( History of esophagogastroduodenoscopy (EGD) H/O colonoscopy S/P left inguinal hernia repair History of umbilical hernia repair Hx of ligation of vein History of bilateral inguinal hernia repair Hx of shoulder surgery Hx of knee surgery) Allergies: Allergies Allergy/AdvReac Type Severity Reaction Status Date / Time prochlorperazine Allergy Intermediate akathisia Verified 09/09/21 11:06 [From COMPAZINE] Review of Systems Sugical H&P ROS: Negative: Constitution, Cardiovascular, Respiratory, Neurological, Psychiatric, Hem-Onc, Allergic/Immunologic, Gastrointestinal, Genitourinary, Musculoskeletal, Integumentary, Endocrine and Eyes/Ears/ Nose/Throat Exam Surgical H&P Exam: Normal: HEENT, Normal: Heart, Normal: Lungs, Normal: Extremities, Normal: Abdomen, Normal: Skin and Normal: Neurological Plan Diagnosis/Plan: Unchanged I have reviewed the history and physical and performed a pertinent physical examination on my patient. No changes have occurred unless specified. EGD and colonoscopy for assessment of GERD and colon screening Time Spent With Patient Time: Total time managing care of this patient today ____ minutes.
[2023-10-29 06:43] VITALS: BMI 25.5
[2023-10-29 07:05] VITALS: BP 116/73; PULSE 74; RESP 15; TEMP 36.4; O2SAT 96
[2023-10-29] MEDS: Lactated Ringers 1,000 ML 100 ML IVCONT (07:06)
--- NOTE | 2023-10-29 07:38 | P.OP_ITS ---
Operative Note Operative Note Date of Service: 10/29/23 Narrative: Operative Information Procedure Description: EGD, Colonoscopy Indication: GERD and colon screening Anesthesia: MAC FLEXIBLE TRANSORAL UPPER GASTROINTESTINAL ENDOSCOPY AND COLONOSCOPY PROCEDURE NOTE UPPER ENDOSCOPY Consent: Indications for the procedure and potential complications of bleeding, perforation, reaction to medications and missed diagnosis were discussed with the patient and informed consent was obtained. Instrument: Olympus GIF H 190 J mid size upper endoscope Monitoring: Vital signs and clinical assessment, continuous EKG monitoring, Pulse oximetry, Carbon Dioxide monitoring and blood pressure monitoring were done throughout the procedure. Procedure: The patient was placed in the left lateral decubitis position and pre-procedure medications were administered and a bite block was placed. The endoscope was inserted into the mouth and advanced under direct vision to the third part of duodenum. A careful inspection was made as the upper endoscope was withdrawn including a retroflexed examination of the proximal stomach; Findings and interventions are described below. Findings: Larynx:normal Esophagus: GE junction at 40 cm, diaphragm hiatus at 40 cm, streaky erosions noted consistent with LA grade B erosive esophagitis, bx taken from GEJ, distal/proximal esophagus Stomach: Normal mucosa. Biopsies were obtained. Grade 2 flap valve on retroflexed examination of the cardia. Duodenum: Bulbar duodenitis, bx taken Intervention: Biopsies as noted above, COLONOSCOPY Instrument: Olympus variable stiffness ADULT scope 190L Colonoscopy Monitoring: Vital signs and clinical assessment, continuous EKG monitoring, Pulse oximetry, Carbon Dioxide monitoring and blood pressure monitoring were done throughout the procedure. Colon withdrawal time was 8 minutes. Procedure: The patient was placed in the left lateral decubitis position and pre-procedure medications were administered. After a digital rectal examination of the ano-rectum, the video colonoscope was inserted into the rectum and advanced through the colon to the cecum/TI. The colonoscope was slowly withdrawn in a retrograde panoramic fashion and the colon mucosa was carefully examined including a retroflexed view of the rectum. Findings and interventions are described below. Procedure Difficulty:moderate--pressure was applied due to redundant colon Findings: Terminal Ileum-normal Cecum:normal Ascending Colon: normal Transverse Colon -normal Descending Colon:normal Sigmoid Colon: mild diverticulosis Rectum: Retroflexion with large internal hemorrhoids, grade I Anorectum - normal Colon preparation: [place] Bowel Preparation Scale Right colon; 3 Transverse colon: 3 Left colon; 3 (0 = Unprepared colon segment with mucosa not seen due to solid stool that cannot be cleared. 1 = Portion of mucosa of the colon segment seen, but other areas of the colon segment not well seen due to staining, residual stool and/or opaque liquid. 2 = Minor amount of residual staining, small fragments of stool and/or opaque liquid, but mucosa of colon segment seen well. 3 = Entire mucosa of colon segment seen well with no residual staining, small fragments of stool or opaque liquid) Impression and Post Procedure Diagnosis: Endoscopy Findings: erosive esophagitis gastritis duodenitis Colonoscopy Findings: redundant colon diverticulosis internal hemorrhoids Plan: Await Pathology results Repeat Colonoscopy in 10 years or earlier if clinically indicated High fiber diet leaflet avoid straining at stool, epsom salts and sitz bath, anusol supps or cream check nsaid hx and if h pylori pos then treat GERD precautions Above findings were reviewed with the patient and relevant handouts were provided if indicated.
[2023-10-29 08:30] VITALS: BP 94/62; PULSE 66; RESP 12; TEMP 36.3; O2SAT 93
[2023-10-29 08:45] VITALS: BP 131/77; PULSE 60; RESP 16; O2SAT 97
[2023-10-29 09:00] VITALS: BP 134/78; PULSE 60; RESP 16; O2SAT 95
[2023-10-29 09:15] VITALS: BP 123/80; PULSE 96; RESP 18; O2SAT 96
[2023-10-29 09:30] VITALS: BP 124/88; PULSE 90; RESP 18; TEMP 36.1; O2SAT 97
== END 2023-10-29 10:42 | disposition home or self-care (01) ==
PROVIDERS: PCP Internal Medicine; Visit Provider Internal Medicine Gastroenterology
PROC: (CPT 45378; principal; 2023-10-29 07:30)
DX: Z12.11 Encounter for screening for malignant neoplasm of colon (principal); K57.30 Diverticulosis of large intestine without perforation or abscess without bleeding; K64.0 First degree hemorrhoids; K21.9 Gastro-esophageal reflux disease without esophagitis; K20.80 Other esophagitis without bleeding; K29.80 Duodenitis without bleeding; K29.50 Unspecified chronic gastritis without bleeding; K31.7 Polyp of stomach and duodenum; K44.9 Diaphragmatic hernia without obstruction or gangrene; J30.2 Other seasonal allergic rhinitis; Z79.899 Other long term (current) drug therapy; Z88.8 Allergy status to other drugs, medicaments and biological substances
CPT/HCPCS: 45378; 43239; 88305; 88313; 88342; J1596; J2250; J2704

== ENCOUNTER → 2023-10-29 06:35 | Outpatient (BNV) | payer OTHER, SELFPAY | PROVIDERS: PCP Internal Medicine; Visit Provider Internal Medicine Gastroenterology | DX: K20.90 Esophagitis, unspecified without bleeding (principal); K29.90 Gastroduodenitis, unspecified, without bleeding; Z12.11 Encounter for screening for malignant neoplasm of colon; K63.89 Other specified diseases of intestine; K57.90 Diverticulosis of intestine, part unspecified, without perforation or abscess without bleeding; K64.8 Other hemorrhoids | CPT/HCPCS: 43239; 45378 ==

== ENCOUNTER 2024-04-12 13:38 | Outpatient (REF) | payer OTHER, SELFPAY ==
--- NOTE | ~2024-04-12 | XR_ITS ---
EXAMINATION: XR CHEST CLINICAL INFORMATION: Cough and unpecified COMPARISON: Prior chest radiograph dated 06/27/2022 TECHNIQUE: 2 views of the chest were obtained. FINDINGS: Lungs grossly clear. There is slight elevation of the left hemidiaphragm with left basilar scarring. Minor scarring right base. No change. Heart and pulmonary vessels are normal. Postsurgical change in the right shoulder and a small clip overlying the left axillary region are all stable. XR/XR chest 2V IMPRESSION: No active disease. Electronically signed by: Cleveland Yancey MD 04/12/2024 04:19 PM EDT
[2024-04-12 14:52] LABS: COVID-19 Test Positive (Negative); IDNOW Serial# 6674DD1D
[2024-04-14 02:57] LABS: Class Alternaria alternata 0; Class Aspergillus fumigatus 0; Class Bermuda Grass 0; Class Birch 0/1; Class Cat Dander 2; Class Cladosporium herbarum 0; Class Cockroach 0; Class Common Ragweed 0; Class Cottonwood 0; Class Derm. pterony 0; Class Dermatophagoides farinae 0; Class Dog Dander 2; Class Elm 0; Class Maple Box Elder 0/1; Class Mountain Cedar 1; Class Mouse Urine Protein 0; Class Mugwort 0; Class Oak 0/1; Class Penicillium crysogenum 0; Class Rough Pigweed 0; Class Sheep Sorrel 0; Class Sycamore 0; Class Timothy Grass 0/1; Class Walnut Tree 0/1; Class White Ash 0; Class White Mulberry 0; D001 IgE D pteronyssinus <0.10 kU/L; D002 - IgE D farinae <0.10 kU/L; E001 - IgE Cat Dander 0.74 kU/L; E005 - IgE Dog Dander 1.91 kU/L; E072-IgE Mouse Urine <0.10 kU/L; G002 IgE Bermuda Grass <0.10 kU/L; I006-IgE Cockroach, German <0.10 kU/L; Immunoglobulin E 172 kU/L (<OR=114); M001 IgE Penicillium chrysogen <0.10 kU/L; M002 - IgE Cladosporium herbar <0.10 kU/L; M003 - IgE Aspergillus fumigat <0.10 kU/L; M006 - IgE Alternaria alternat <0.10 kU/L; T001 IgE Maple/Box Elder 0.14 kU/L; T003 IgE Common Silver Birch 0.15 kU/L; T006 - IgE Cedar, Mountain 0.46 kU/L; T007 - IgE Oak, White 0.13 kU/L; T008 IgE Elm, American <0.10 kU/L; T010 - IgE Walnut 0.11 kU/L; T011 - IgE Maple Leaf Sycamore <0.10 kU/L; T014 - IgE Cottonwood <0.10 kU/L; T015 - IgE Ash, White <0.10 kU/L; T070 - IgE White Mulberry <0.10 kU/L; W001 - IgE Ragweed, Short <0.10 kU/L; W006 - IgE Mugwort <0.10 kU/L; W014 IgE Pigweed, Common <0.10 kU/L; W018 IgE Sheep Sorrel <0.10 kU/L
== END 2024-04-12 13:39 | disposition home or self-care (01) ==
LOC: HO.LAB 13:38
PROVIDERS: Absent Provider Internal Medicine; PCP Internal Medicine; Visit Provider Internal Medicine Pulmonary Disease
DX: R05.8 Other specified cough (principal)
CPT/HCPCS: 36415; 71046; 82785; 86003; 87635

== ENCOUNTER 2024-05-19 15:24 | Outpatient (AMB) | payer OTHER, SELFPAY ==
--- NOTE | 2024-05-19 15:28 | MHC.OFFVIS ---
Vital Signs 05/19/24 15:29 Height 6 ft 1 in Weight 197 lb 5.019 oz BMI 26.0 BP 110/60 Blood Pressure Location Rt brachial Position Sitting Pulse 62 Pulse Source Doppler Pulse Oximetry (%) 95 Oxygen Delivery Method Room Air Intake Visit Reasons: Cough Allergies prochlorperazine [From COMPAZINE] Allergy (Intermediate, Verified 10/29/23 06:41) akathisia HPI HPI Cough: Details: 69-year-old gentleman, nonsmoker, with underlying history of environmental allergies, previously on antigen injections in childhood, with abatement in recurrence of symptoms in his 20s, with worsening environmental allergy symptoms over the last several years. Also, with intermittent dermatographia and related urticaria with interested in immunologic therapy. His RAST test is positive in his IgE is elevated in 170's range. Patient does endorse recent history of COVID-19 with perinfectious cough, now resolved. [facility] [place] Medical History Left knee pain Degenerative tear of left medial meniscus COVID-19 vaccine series completed Seasonal allergies Surgical History History of esophagogastroduodenoscopy (EGD) H/O colonoscopy S/P left inguinal hernia repair History of umbilical hernia repair Hx of ligation of vein History of bilateral inguinal hernia repair Hx of shoulder surgery Hx of knee surgery Family History Mother No problems noted. Father No problems noted. Brother No problems noted. Sister No problems noted. Sister No problems noted. Social History Alcohol intake: never Patient Tobacco Use Status: Never used Tobacco Review of Systems Const Denies daytime sleepiness, Denies excessive sweating, Denies fatigue, Denies fever(s), Denies lethargy, Denies malaise, Denies night sweats, Denies snoring and Denies weight loss Eyes Denies blurry vision and Denies itchy eyes ENT Denies nasal congestion, Denies post nasal drip, Denies sinus pain, Denies sinus pressure and Denies other ( Thrush) Card Denies chest pain, Denies pedal edema, Denies dyspnea, Denies orthopnea and Denies paroxysmal nocturnal dyspnea Resp Denies cough, Denies hemoptysis, Denies excessive phlegm production, Denies dyspnea, Denies snoring and Denies wheezing GI Denies abdominal pain and Denies heartburn Musc Denies myalgias, Denies arthralgias and Denies joint swelling Skin/Breast Denies rash Neuro Denies memory loss and Denies seizure-like activity Psych Denies abnormal sleep pattern, Denies anxiety and Denies memory loss Endo Denies excessive sweating, Denies fatigue and Denies heat intolerance Neftaly/Lymph Denies easy bruising Aller/Immun Denies itchy eyes, Denies seasonal rhinorrhea and Denies wheezing Physical Exam Vital Signs: Last Vital Signs Pulse 62 05/19/24 15:29 BP 110/60 05/19/24 15:29 Pulse Ox 95 05/19/24 15:29 Oxygen Delivery Method Room Air 05/19/24 15:29 BMI result Body Mass Index 26.0 Const General: no acute distress and alert Nutritional Appearance: not obese Orientation/consciousness: Other orientation findings ( oriented) HEENT Head: Yes atraumatic Eyes General: appearance normal, both eyes and all related structures Sclerae: sclerae normal EOM: EOMs intact bilaterally Neck Neck: Yes supple Lymphatic: no lymphadenopathy noted Resp Effort & Inspection: normal respiratory effort and no use of accessory muscles Auscultation: clear to auscultation bilaterally Cardio Rate: regular rate Rhythm: regular rhythm Heart sounds: no gallops, no murmurs and no rubs Skin General skin exam: other ( warm) Extrem General: No clubbing, No cyanosis and No edema Assessment & Plan Assessment & Plan (1) Urticaria: Code(s): L50.9 - Urticaria, unspecified Category: Medical (2) Dermatographia: Code(s): L50.3 - Dermatographic urticaria Category: Medical (3) Environmental allergies: Code(s): Z91.09 - Other allergy status, other than to drugs and biological substances Category: Medical Plan Patient has seasonal worsening of his symptoms in spring/summer. Will start on Xolair therapy. Coding Level of Care Code New Pt Level 4 (33525) Diagnoses Urticaria L50.9 Dermatographia L50.3 Environmental allergies Z91.09
[2024-05-19 15:29] VITALS: BP 110/60; PULSE 62; O2SAT 95; BMI 26.0
== END 2024-05-19 15:46 | disposition home or self-care (01) ==
PROVIDERS: PCP Internal Medicine; Visit Provider Internal Medicine Pulmonary Disease
DX: L50.9 Urticaria, unspecified (principal); L50.3 Dermatographic urticaria; Z91.09 Other allergy status, other than to drugs and biological substances
CPT/HCPCS: 99204

== ENCOUNTER → 2024-05-19 15:24 | Outpatient (BNVA) | payer OTHER, SELFPAY | PROVIDERS: PCP Internal Medicine; Visit Provider Internal Medicine Pulmonary Disease ==

== ENCOUNTER 2025-03-30 13:00 | Outpatient (RCR) | payer OTHER, SELFPAY ==
--- NOTE | 2025-02-23 14:03 | MHC.OT.EP ---
[address] [phone] Occupational Therapy Plan of Care Patient Name: Jareth Campos Date of Evaluation: 02/23/25 Diagnosis: Left Tennis Elbow Pain Location: Left elbow and forearm, specifically extensor wad Pain Score: 2 Pain Scale Used: Numeric (0 - 10) Aggravating Factors: Pain w/ lifting heavier bags, opening a jar, pushing objects/heavy doors Alleviating Factors: None used Assessment: 70 yo male presents w/ left elbow pain for about three months, but more aggravated this week and disruptive to sleep. Spoke with PCP and now referred to OT for further assessment and conservative management. On assessment today, he has low pain and mild tenderness reported in left extensors, vague into elbow but identifies some pain in medial elbow and at times into upper arm. He notes some numbness in ulnar distribution of left hand w/ mild webspace and hypothenar wasting. Gross grasp is low compared to right, with more pain and weakness w/ testing in elbow extension versus flexion. Symptoms consistent with extensor strain w/ possible lateral epicondylitis and ulnar nerve irritation. I anticipate he will do well w/ course of OT. Frequency and Duration: The patient will be seen 2x/wk for 4 weeks Short Term Goals: Ind w/ Francis stretches Progress to flexor/extensor strengthening program Good follow through w/ sleep modifications Good follow through w/ activity modifications/joint protection at elbow Mother Helper Goals: Left gross grasp >70lb pain free Pt to report ease w/ sleeping Ind w/ progression of strengthening (bands, weights, etc) Treatment Plan: Therapeutic Exercise Therapeutic Activity Home Exercise Program Splinting Neuro Re-ed Patient Education ADL Training Ultrasound MHP Cold Packs Joint Mobilization Soft Tissue Mobilization Kinesiotaping Trial nighttime wrist orthosis Consider elbow flex block with sleep Consider CFB Electronically Signed By: Stacy Kimbrough OTR/L CHT Please Sign and return to therapist. Thank you once again for your referral.
== END 2025-05-05 07:39 | disposition home or self-care (01) ==
LOC: HO.OT 13:00
PROVIDERS: PCP Internal Medicine; Visit Provider Internal Medicine
DX: M77.10 Lateral epicondylitis, unspecified elbow (principal)
CPT/HCPCS: 97035; 97110; 97165; 97535

== ENCOUNTER 2025-05-17 14:41 | Outpatient (AMB) | payer OTHER, SELFPAY ==
[2025-05-17 14:42] VITALS: BP 102/64; PULSE 60; O2SAT 97; BMI 25.1
--- NOTE | 2025-05-17 14:42 | MHC.OFFVIS ---
Vital Signs 05/17/25 14:42 Height 6 ft 1 in Weight 190 lb BMI 25.1 BP 102/64 Blood Pressure Location Rt brachial Position Sitting Pulse 60 Pulse Source Pulse Oximeter Pulse Oximetry (%) 97 Oxygen Delivery Method Room Air Intake Visit Reasons: Cough Allergies prochlorperazine (From COMPAZINE) Allergy (Intermediate, Verified 05/17/25 14:56) akathisia HPI HPI Cough: Details: 70-year-old gentleman, nonsmoker, with underlying history of environmental allergies, previously on antigen injections in childhood, with abatement later and recurrence of symptoms in his 20s, with worsening environmental allergy symptoms over the last several years. Also, with intermittent dermatographia and related urticaria with significant improvement on Xolair therapy. [facility] Medical History Left knee pain Degenerative tear of left medial meniscus COVID-19 vaccine series completed Seasonal allergies Surgical History History of esophagogastroduodenoscopy (EGD) H/O colonoscopy S/P left inguinal hernia repair History of umbilical hernia repair Hx of ligation of vein History of bilateral inguinal hernia repair Hx of shoulder surgery Hx of knee surgery Family History Mother No problems noted. Father No problems noted. Brother No problems noted. Sister No problems noted. Sister No problems noted. Social History Alcohol intake: never Patient Tobacco Use Status: Never used Tobacco Review of Systems Const Denies daytime sleepiness, Denies excessive sweating, Denies fatigue, Denies fever(s), Denies lethargy, Denies malaise, Denies night sweats, Denies snoring and Denies weight loss Eyes Denies blurry vision and Denies itchy eyes ENT Denies nasal congestion, Denies post nasal drip, Denies sinus pain, Denies sinus pressure and Denies other ( Thrush) Card Denies chest pain, Denies pedal edema, Denies dyspnea, Denies orthopnea and Denies paroxysmal nocturnal dyspnea Resp Denies cough, Denies hemoptysis, Denies excessive phlegm production, Denies dyspnea, Denies snoring and Denies wheezing GI Denies abdominal pain and Denies heartburn Musc Denies myalgias, Denies arthralgias and Denies joint swelling Skin/Breast Denies rash Neuro Denies memory loss and Denies seizure-like activity Psych Denies abnormal sleep pattern, Denies anxiety and Denies memory loss Endo Denies excessive sweating, Denies fatigue and Denies heat intolerance Neftaly/Lymph Denies easy bruising Aller/Immun Denies itchy eyes, Denies seasonal rhinorrhea and Denies wheezing Physical Exam Vital Signs: Last Vital Signs Pulse 60 05/17/25 14:42 BP 102/64 05/17/25 14:42 Pulse Ox 97 05/17/25 14:42 Oxygen Delivery Method Room Air 05/17/25 14:42 BMI result Body Mass Index 25.1 Const General: no acute distress and alert Nutritional Appearance: not obese Orientation/consciousness: Other orientation findings ( oriented) HEENT Head: Yes atraumatic Eyes General: appearance normal, both eyes and all related structures Sclerae: sclerae normal EOM: EOMs intact bilaterally Neck Neck: Yes supple Lymphatic: no lymphadenopathy noted Resp Effort & Inspection: normal respiratory effort and no use of accessory muscles Auscultation: clear to auscultation bilaterally Cardio Rate: regular rate Rhythm: regular rhythm Heart sounds: no gallops, no murmurs and no rubs Skin General skin exam: other ( warm) Extrem General: No clubbing, No cyanosis and No edema Office Procedures Flu Questionnaire Does the patient have a severe egg allergy?: No Does the patient have severe life threatening allergies?: No Does the patient have a fever or illness today?: No Has the patient ever had Guillain-Prospect Syndrome?: No Has the patient ever had any past reaction to a flu shot?: No Immunizations Fluarix [id number] (PF) 45 mcg (15 mcg x 3)/0.5 mL IM syringe Performing Provider: Michael Hancock MD Performing Location: [facility] [place] [facility] Administered by: Bridgett Cage LPN on 05/17/25 15:10 Dose Route Admin Location Dispensed Lot Number Expiration Date NDC Orthopedics Nurse 0.5 mL IM Left Deltoid 0.5 mL [id number] 02/06/26 55501-930-56 [facility] VIS Given Date VIS Provided VIS Publication Date 05/17/25 Single Vaccine 24 Eligibility Eligibility Date Funding Source Not [facility] Eligible 05/17/25 Private Assessment & Plan Assessment & Plan (1) Environmental allergies: Code(s): Z91.09 - Other allergy status, other than to drugs and biological substances Category: Medical (2) Urticaria: Code(s): L50.9 - Urticaria, unspecified Category: Medical (3) Dermatographia: Code(s): L50.3 - Dermatographic urticaria Category: Medical Plan Well controlled on Xolair therapy. Continue Xolair. Orders: Orders Influenza [id number] Immunization 05/17/25 Z91.09 - Other allergy status, other than to drugs and biological substances Coding Level of Care Code Est Pt Level 4 (18608) Diagnoses Environmental allergies Z91.09 Urticaria L50.9 Dermatographia L50.3
== END 2025-05-17 15:03 | disposition home or self-care (01) ==
LOC: HO.HPS 14:42
PROVIDERS: PCP Internal Medicine; Visit Provider Internal Medicine Pulmonary Disease
DX: Z91.09 Other allergy status, other than to drugs and biological substances (principal); L50.9 Urticaria, unspecified; L50.3 Dermatographic urticaria
CPT/HCPCS: 99214

== ENCOUNTER → 2025-05-17 14:41 | Outpatient (BNVA) | payer OTHER, SELFPAY | PROVIDERS: PCP Internal Medicine; Visit Provider Internal Medicine Pulmonary Disease | DX: Z23 Encounter for immunization (principal) | CPT/HCPCS: 90471; 90656 ==